=== PATIENT | female | born 1980 | race Caucasian/White ===

== ENCOUNTER 2025-04-05 07:16 | Outpatient (RCR) | payer BC, SELFPAY | END 2025-04-05 23:59 | disposition home or self-care (01) | LOC: RPT 07:16 | PROVIDERS: ATTENDING PHYSICIAN Advanced Practice Midwife; FAMILY PHYSICIAN Family Medicine | DX: N81.89 Other female genital prolapse (principal); N39.3 Stress incontinence (female) (male); K59.00 Constipation, unspecified; Z73.6 Limitation of activities due to disability; M62.81 Muscle weakness (generalized) | CPT/HCPCS: 97163; 97530 ==

== ENCOUNTER 2025-05-11 10:16 | Outpatient (RCR) | payer BC, SELFPAY | END 2025-05-11 23:59 | disposition home or self-care (01) | LOC: RPT 10:16 | PROVIDERS: ATTENDING PHYSICIAN Advanced Practice Midwife; FAMILY PHYSICIAN Family Medicine | DX: N81.89 Other female genital prolapse (principal); N39.3 Stress incontinence (female) (male); K59.00 Constipation, unspecified; Z73.6 Limitation of activities due to disability; M62.81 Muscle weakness (generalized) | CPT/HCPCS: 97014; 97110; 97112; 97530 ==

== ENCOUNTER 2025-05-18 14:01 | Outpatient (RCR) | payer BC, SELFPAY | END 2025-05-18 23:59 | disposition home or self-care (01) | LOC: RPT 14:01 | PROVIDERS: ATTENDING PHYSICIAN Advanced Practice Midwife; FAMILY PHYSICIAN Family Medicine | DX: N81.89 Other female genital prolapse (principal); N39.3 Stress incontinence (female) (male); K59.00 Constipation, unspecified; Z73.6 Limitation of activities due to disability; M62.81 Muscle weakness (generalized) | CPT/HCPCS: 97014; 97110; 97112; 97530 ==